=== PATIENT | male | born 1995 | race Two or more races ===

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

== ENCOUNTER 2017-02-23 04:45 | Emergency (ER) | payer OTHER ==
[~2017-02-23] VITALS: Ht 172.7 cm; Wt 63.6 kg
[2017-02-23 06:00] LABS: HEMATOCRIT 39.5 % (38.0-50.0); MCH 30.2 PG (29.0-34.0); MCHC 34.4 G/DL (30.0-36.0); MCV 87.6 FL (86-99); MEAN PLAT.VOLUME 9.9 uM^3 (9.0-12.4); PLATELET COUNT 211 K/uL (156-360); RBC DIS.WIDTH-SD 41.2 % (39-53); RED BLOOD COUNT 4.51 M/uL (4.00-5.50); WHITE BLOOD COUNT 13.4 K/uL (4.1-10.2)
[2017-02-23 06:05] LABS: ADD MIUA? YES; BILIRUBIN NEGATIVE; BLOOD MODERATE; COLOR YELLOW ((YELLOW)); GLUCOSE (STRIP) NEGATIVE; KETONES NEGATIVE; LEUKOCYTES NEGATIVE; NITRITE NEGATIVE; PROTEIN (STRIP) NEGATIVE; UROBILINOGEN 0.2 MG/DL (0.2-1.0)
[2017-02-23 06:10] LABS: CHLORIDE 102 mEq/L (99-109); POTASSIUM 3.1 mEq/L (3.7-5.4); SODIUM 138 mEq/L (136-147)
[2017-02-23 06:11] LABS: BACTERIA NONE SEEN /HPF; EPITHELIAL CELLS NONE SEEN /HPF; MUCUS TRACE /LPF; RED BLOOD CELLS 0-5 /HPF (0-5); UCUL ADDED? NO; WHITE BLOOD CELLS 0-5 /HPF (0-5)
[2017-02-23 06:12] LABS: GLUCOSE 98 mg/dL (70-99)
[2017-02-23 06:13] LABS: ANION GAP 10 MEQ/L (2-14)
[2017-02-23 06:15] LABS: AMPHETAMINE NEGATIVE (500 ng/mL); BARBITURATES NEGATIVE (200 ng/mL); BENZODIAZEPINES NEGATIVE (150 ng/mL); COCAINE PRESUMPTIVE POSITIVE (150 ng/mL); INTERNAL CONTROLS VALID? YES; METHADONE NEGATIVE (200 ng/mL); METHAMPHETAMINE NEGATIVE (500 ng/mL); OPIATES (MORPHINE) PRESUMPTIVE POSITIVE (100 ng/mL); OXYCODONE NEGATIVE (100 ng/mL); PHENCYCLIDINE NEGATIVE (25 ng/mL); PROPOXYPHENE NEGATIVE (300 ng/mL); THC CANNABINOIDS NEGATIVE (50 ng/mL); TRICYCLIC ANTIDEPRESSANTS NEGATIVE (300 ng/mL)
[2017-02-23 06:15] LABS: GFR ESTIMATE (CALCULATED) > 59 mL/min/
[2017-02-23 06:16] LABS: UREA NITROGEN (BUN) 13 mg/dL (9-23)
[2017-02-23 06:16] LABS: ADD MEDTOX COMMENT Y
[2017-02-23 07:05] LABS: D-DIMER ELISA < 150.00 ng/mLDDU (<230)
[2017-02-23 07:58] VITALS: BP 113/69
== END 2017-02-23 08:19 | disposition home or self-care (01) ==
LOC: EME 04:45
PROVIDERS: Emergency Medicine
DX: R07.89 Other chest pain (principal); F14.10 Cocaine abuse, uncomplicated; F11.10 Opioid abuse, uncomplicated; I10 Essential (primary) hypertension; Z82.49 Family history of ischemic heart disease and other diseases of the circulatory system; F17.200 Nicotine dependence, unspecified, uncomplicated; R56.9 Unspecified convulsions; Z88.0 Allergy status to penicillin; Z88.1 Allergy status to other antibiotic agents
CPT/HCPCS: 71020; 80048; 81003; 84999; 85027; 85379; 93005; 99281; 99284; J1885

== ENCOUNTER 2017-03-26 17:56 | Emergency (ER) | payer OTHER | END 2017-03-26 18:18 | disposition left against medical advice (07) | LOC: EME 17:56 | DX: Z04.6 Encounter for general psychiatric examination, requested by authority (principal); Z53.21 Procedure and treatment not carried out due to patient leaving prior to being seen by health care provider ==

== ENCOUNTER 2018-02-07 22:07 | Emergency (ER) | payer OTHER ==
[~2018-02-07] VITALS: Ht 177.8 cm; Wt 64.5 kg
[2018-02-07 22:40] LABS: HEMATOCRIT 40.8 % (38.0-50.0); HEMOGLOBIN 14.3 G/DL (12.5-16.6); MCH 30.5 PG (29.0-34.0); PLATELET COUNT 214 K/uL (156-360); RBC DIS.WIDTH-CV 12.5 % (11.8-14.6); RBC DIS.WIDTH-SD 39.9 % (39-53); RED BLOOD COUNT 4.69 M/uL (4.00-5.50)
[2018-02-07 22:53] LABS: ALBUMIN 4.2 g/dL (3.2-4.8); CHLORIDE 99 mEq/L (99-109); SODIUM 135 mEq/L (136-147)
[2018-02-07 22:55] LABS: GLUCOSE 79 mg/dL (70-99); TOTAL PROTEIN 7.6 g/dL (6.4-8.3)
[2018-02-07 22:57] LABS: TOTAL BILIRUBIN 0.9 mg/dL (0.0-1.0)
[2018-02-07 22:58] LABS: SERUM ETHYL ALCOHOL < 10 mg/dL
[2018-02-07 22:59] LABS: ALKALINE PHOSPHATASE 94 IU/L (3-129); CREATININE 0.9 mg/dL (0.6-1.3); GFR ESTIMATE (CALCULATED) > 59 mL/min/ (58.99-99999)
[2018-02-07 23:00] LABS: AST (GOT) 148 IU/L (2-34); UREA NITROGEN (BUN) 16 mg/dL (9-23)
[2018-02-07 23:02] LABS: ALT (GPT) 173 IU/L (3-49); LIPASE 8 U/L (1.0-51.0)
[2018-02-07 23:25] LABS: CREATINE KINASE 820 IU/L (1-294); TOTAL CK 820 IU/L (1-294)
[2018-02-07 23:31] LABS: CK-MB 4.5 ng/mL (0.0-4.9); CKMB RELATIVE INDEX 0.5 (0.0-3.9)
[2018-02-07 23:32] LABS: TROP-I INTERPRETATION NEGATIVE; TROPONIN-I < 0.01 ng/mL (0.0-0.30)
[2018-02-08 02:04] VITALS: BP 117/75
== END 2018-02-08 02:05 | disposition home or self-care (01) ==
LOC: EME → EDBD 22:07 → EME 22:07
PROVIDERS: Emergency Medicine
DX: R45.1 Restlessness and agitation (principal); E86.0 Dehydration; R74.0 Nonspecific elevation of levels of transaminase and lactic acid dehydrogenase [LDH]; R10.84 Generalized abdominal pain; F16.90 Hallucinogen use, unspecified, uncomplicated; F17.200 Nicotine dependence, unspecified, uncomplicated
CPT/HCPCS: 80053; 81003; 82550; 82553; 83690; 84484; 85027; 93005; G0480; J1630; J7030

== ENCOUNTER 2018-02-14 05:11 | Emergency (ER) | payer OTHER ==
[~2018-02-14] VITALS: Ht 167.6 cm; Wt 54.4 kg
[2018-02-14 06:10] VITALS: BP 105/63
== END 2018-02-14 06:10 | disposition home or self-care (01) ==
LOC: EME → EDBD 05:11 → EME 05:11
DX: F19.10 Other psychoactive substance abuse, uncomplicated (principal); I10 Essential (primary) hypertension; B19.20 Unspecified viral hepatitis C without hepatic coma; F32.9 Major depressive disorder, single episode, unspecified; F17.200 Nicotine dependence, unspecified, uncomplicated; Z86.79 Personal history of other diseases of the circulatory system; Z87.19 Personal history of other diseases of the digestive system; Z88.0 Allergy status to penicillin; Z88.8 Allergy status to other drugs, medicaments and biological substances
CPT/HCPCS: 99281; 99284